=== PATIENT | male | born 1985 | race Caucasian/White ===

== ENCOUNTER 2020-12-05 15:00 | Outpatient (CLI) | payer BC, SELFPAY ==
--- NOTE | ~2020-12-05 | US_ITS ---
EXAMINATION: US scrotum doppler DATE: 12/05/2020 17:57 INDICATION: Testicular pain. TECHNIQUE: Grayscale and Doppler ultrasound images of the testes were obtained. COMPARISON: None. FINDINGS: The right testis measures 4.0 x 2.8 x 3.2 cm. The left testis measures 4.1 x 2.3 x 2.9 cm. There is normal vascular flow to both testes. The right epididymis is normal with normal vascular ruchi w. The left epididymis is normal with normal vascular flow. There is no varicocele or hydrocele. IMPRESSION: 1. Normal testes. Reviewed, dictated and finalized at location A. IMPRESSION: 1. Normal testes.
== END 2020-12-05 15:01 | disposition home or self-care (01) ==
PROVIDERS: PCP Physician Assistant; Visit Provider Physician Assistant
DX: N50.819 Testicular pain, unspecified (principal)
CPT/HCPCS: 76870; 93976

== ENCOUNTER 2024-09-20 09:14 | Outpatient (CLI) | payer OTHER, SELFPAY ==
[2024-10-02 11:38] VITALS: BMI 27.5
--- NOTE | 2024-10-02 11:38 | P.SLEEP_ITS ---
Sleep Study - Home Unattended Date of Study: 09/20/24 Ordering Provider: Alfredo Aldana MD Interpreting Provider: Bev Ramirez, DO Home Sleep Study Type: Watch PAT Height: 1.91 m Weight: 99.79 kg Body Mass Index: 27.5 Neck Circumference (inches): 16 [place]: 3 Reason for Sleep Study snoring Sleep History The patient is a 39-year-old that had sleep study by his primary care physician for evaluation of sleep apnea. The patient admits to snoring loudly and interruptions in breathing while asleep. He denies choking or gasping at night. He denies having trouble breathing on his back. He does have morning headaches. He does have a dry or sore mouth / throat in the morning. He denies nocturnal heartburn. He denies nocturia. He does have difficulty falling and staying asleep. He denies having difficulty returning to sleep. He does have trouble falling asleep if he wakes up throughout the night. He denies any hypnotic or sedative use. He denies feeling anxious about sleep. He does feel tired or sleepy during the day. He does feel tired in the morning. He denies having the urge to fall asleep during the day. He does feel drowsy while driving. He denies sleep paralysis, cataplexy and hypnagogic/ hypnopompic hallucinations. He does clench or grind his teeth. He denies kicking or jerking his legs excessively. He denies having a restless feeling in his legs. He goes to bed at 4:00 a.m. on work days and at 3:00 a.m. on his days off. It takes him 30 minutes to fall asleep on work days and 45 minutes on his days off. He gets 5-1/2 hours of sleep on work days and 6 hours on his days off. His sleep is somewhat restorative on days off. He denies taking any planned naps. He denies dream enactment behavior. He denies sleep walking. He consumes 3-4 cups of caffeinated beverage per day. He denies tobacco use. He consumes 1 alcoholic beverage 1-2 nights per week. He denies exercising regular basis. [facility] Past Medical History Medical History Obstructive sleep apnea Family History Family History Father No problems noted. Grandparent Diabetes mellitus Mother No problems noted. 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 Has high school education with 3 semesters of College Gender identity (if verbalized by the patient): Male Sexual Orientation (if Verbalized by the Patient): Straight or Heterosexual Sleep Procedure The sleep study was completed using [employer] a technically adequate device with seven channels: peripheral arterial tone, actigraphy, body position, snore, respiratory movement, pulse oximetry, sleep staging, and heart rate. Prior to using the device, the patient received verbal and written instructions for its application and was provided with the help desk phone number for additional telephonic instruction with 24-hour availability of qualified personnel to answer questions. The study was scored using CMS guidelines. Sleep Architecture The total recording time is 7 hrs, 6 min. The total sleep time is 6 hrs, 34 min. Sleep latency is 13 minutes. REM latency is 193 minutes. The patient had 9 episodes of waking. Sleep architecture shows 17.6% deep sleep, 58.0% light sleep, and (as % Total Sleep Time) showed NREM (Light 58.0%; Deep 17.6%), and a 24.4% stage REM. The patient spent 57.6% of total sleep time in the supine position. Sleep efficiency was 92.49. Respiratory Analysis The overall AHI (pAHI 4%:) is 18.9. The overall AHI (pAHI 3%:) is 36.7. The central AHI is 1.3. The AHI was 35.2 in NREM and 41.2 in REM sleep. The AHI was 29.9 in Supine and 46.6 in Non-supine sleep. Percent of Bola Muniz respirations is 0.0. Oximetry Data The oxygen desaturation index (JUANI 4%:) is 6.7. The mean saturation is 95%, and the lowest saturation is 91%. Time spent with saturation < 88% is 0.0 minutes. Snoring Profile Snoring average intensity is 40 dB. The patient snored above 45 decibels for 5.0 minutes, 1.3% of sleep time. Cardiac Profile The average pulse rate is 65 beats per minutes. The lowest pulse rate is 50 bpm. The highest pulse rate reported is 103 bpm. Atrial fibrillation was not detected. Premature beats occur <0.1 per minute. Assessment and Plan Assessment and Plan (1) Obstructive sleep apnea: Code(s): G47.33 - Obstructive sleep apnea (adult) (pediatric) Status: Acute Assessment and Plan: The patient had an overall AHI of 18.9 with desaturation down to 91%. This is consistent with moderate sleep apnea. I recommend that the patient be prescribed AutoPAP 5-15 cm H2O, CPAP mask/filters/tubing and heated humidity. This should be used with all episodes of sleep.? Compliance should be reviewed within 31-90 days of starting therapy for usage greater than 4 hours per night greater than 70% of the nights. The patient should be asked about symptoms such as?excessive daytime sleepiness, quality of sleep, decreased nocturia, increased?mental functioning such as memory, mood, and concentration. Data The data obtained during this sleep study is adequate for interpretation. Certification This sleep study has been reviewed by a board certified sleep medicine physician.
== END 2024-09-26 11:05 | disposition home or self-care (01) ==
PROVIDERS: PCP Physician Assistant; Visit Provider Family Medicine
DX: G47.33 Obstructive sleep apnea (adult) (pediatric) (principal)
CPT/HCPCS: 95800